=== PATIENT | female | born 1975 | race Caucasian/White ===

== ENCOUNTER 2020-08-25 13:21 | Outpatient (CLI) | payer OTHER, SELFPAY ==
--- NOTE | ~2020-08-25 | MM_ITS ---
EXAMINATION: MM screening radha BI w lisa HISTORY: Screening TECHNIQUE: Craniocaudal and mediolateral oblique 3-D tomosynthesis images were obtained and synthetic 2-D images were generated. CAD analysis was submitted and interpreted. COMPARISON: No prior mammogram is available for comparison at this institution. BREAST PARENCHYMAL COMPOSITION: Breast composed of scattered areas of fibroglandular density. FINDINGS: There is no mammographic evidence for malignancy in the right breast. There is a 1 cm mass in the lower central aspect of the left breast posteriorly containing peripheral calcification. IMPRESSION: 1. Left breast mass, lower central aspect posteriorly. 2. Additional mammographic views and possible breast ultrasound are recommended. BI-RADS Category 0: Incomplete: Needs additional imaging evaluation. Reviewed, dictated and finalized at location A. OR DATA ANALYST IMPRESSION: 1. Left breast mass, lower central aspect posteriorly. 2. Additional mammographic views and possible breast ultrasound are recommended . BI-RADS Category 0: Incomplete: Needs additional imaging evaluation.
== END 2020-08-25 13:22 | disposition home or self-care (01) ==
PROVIDERS: PCP Family Medicine; Visit Provider Nurse Practitioner Family
DX: Z12.31 Encounter for screening mammogram for malignant neoplasm of breast (principal); R92.8 Other abnormal and inconclusive findings on diagnostic imaging of breast
CPT/HCPCS: 77063; 77067

== ENCOUNTER 2020-11-07 09:07 | Emergency (ER) | payer OTHER, SELFPAY ==
[2020-11-07 09:11] VITALS: BP 119/80; PULSE 82; RESP 18; TEMP 36.3; O2SAT 98
--- NOTE | 2020-11-07 09:15 | ED.BACK ---
HPI - Back Pain/Injury General Chief Complaint: Back Pain/Injury Stated Complaint: BACK PAIN Time Seen by Provider: 11/07/20 09:16 Source: patient and RN notes reviewed History of Present Illness HPI Narrative: Patient is a 45-year-old female who presents the urgent care with complaints of acute on chronic low back pain. Patient states that she had her last flareup about 2 to 3 months ago. States that she typically uses 10 mg of Flexeril to relieve the pain however, the last 2 days the Flexeril has not been helping. Patient states that it is on her right lower back and extending to the right buttocks/hip. Patient states that she stretched really good yesterday after waking up and thinks that she made it worse . Patient denies of any known injury, fall or any strenuous activity that would have caused the flare. No other acute complaints. No acute distress noted. Patient aware of the plan of care. Some parts of this dictation were generated by voice recognition software and may contain typographical and/or grammatical inaccuracies. Related Data Home Medications Medication Instructions Recorded Confirmed albuterol sulfate 90 mcg/actuation 1 puff INHALATION Q4H PRN 08/05/20 aerosol inhaler citalopram 20 mg tablet 20 mg PO DAILY 08/05/20 clobetasol 0.05 % topical ointment 1 applic TOPICAL .twice monthly g 08/05/20 dupilumab 300 mg/2 mL subcutaneous 300 mg SUBCUT ONCE 08/05/20 syringe fluticasone 500 mcg-salmeterol 50 1 inh INHALATION Q12H 08/05/20 mcg/dose blistr powdr for inhalation lisinopril 10 1 tablet PO DAILY 08/05/20 mg-hydrochlorothiazide 12.5 mg tablet omeprazole 40 mg capsule,delayed 40 mg PO DAILY 08/05/20 release triamcinolone acetonide 0.1 % 1 applic TOPICAL DAILY 08/05/20 topical ointment Allergies Allergy/AdvReac Type Severity Reaction Status Date / Time sertraline [From Zoloft] AdvReac Intermediate Swelling Verified 08/05/20 16:11 of Throat Review of Systems Review of Systems: Narrative: CONSTITUTIONAL: Denies fever, chills, or sweats. EYES: Denies visual changes, redness, or discharge. ENT: Denies rhinorrhea, congestion, sore throat, or otalgia. CARDIOVASCULAR: Denies chest pain, palpitations, or edema. RESPIRATORY: Denies cough or dyspnea. GASTROINTESTINAL: Denies abdominal pain, nausea, vomiting, or diarrhea. GENITOURINARY: Denies dysuria or hematuria. SKIN: Denies rash or itching. MUSCULOSKELETAL: Reports of right-sided low back pain radiating to the right hip NEUROLOGIC: Denies headache, numbness, or weakness. All other systems reviewed are negative, except as documented in HPI. [facility] Past Medical History Medical History (Updated 11/07/20 @ 09:19 by DEEDEE Astorga) Anxiety Asthma Atopic dermatitis Chronic shoulder pain Cyst of left ovary (~11/2017) GERD without esophagitis Hyperlipidemia Hypertension Irritable bowel syndrome with diarrhea Non-seasonal allergic rhinitis Normal mammography (~03/24/19) Normal Pap smear (~10/14/18) Repeat pap after 10/14/21 Surgical History Surgical History (Updated 08/05/20 @ 17:36 by Gabriella Mccormick NP) History of cholecystectomy History of tonsillectomy Family History Family History (Updated 08/05/20 @ 16:08 by Adelaida Cobos [facility]) Mother Diabetes mellitus Mother Hypothyroidism Grandparent Cancer Father Heart attack Social History Social History (Updated 08/05/20 @ 16:47 by Gabriella Mccormick NP) Social History: . Two children ages 24 and 4. 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 Smoking status: Never smoker Comments At the time of my signature, I reviewed and agree with the nursing past medical, surgical, social, and family history. There is no relevant family history pertinent to the patient complaint. Exam Narrative: Exam Narrative: GENERAL: This is a well-nourished, well-developed patient, in no apparent distress. HEAD: normocephalic, atraumatic. EYES:
[2020-11-07] MEDS: predniSONE 20 MG TABLET 60 MG PO (09:20)
== END 2020-11-07 09:27 | disposition home or self-care (01) ==
PROVIDERS: Emergency Provider Nurse Practitioner Family; PCP Nurse Practitioner Family
DX: S39.012A Strain of muscle, fascia and tendon of lower back, initial encounter (principal); X58.XXXA Exposure to other specified factors, initial encounter; M54.32 Sciatica, left side; J45.909 Unspecified asthma, uncomplicated; K21.9 Gastro-esophageal reflux disease without esophagitis; E78.5 Hyperlipidemia, unspecified; I10 Essential (primary) hypertension; F41.9 Anxiety disorder, unspecified
CPT/HCPCS: 99213; G0463; J7512

== ENCOUNTER 2021-09-09 07:18 | Outpatient (CLI) | payer OTHER, SELFPAY ==
--- NOTE | ~2021-09-09 | US_ITS ---
EXAMINATION: US abdomen limited EXAM DATE: 09/09/2021 08:12 INDICATION: R74.8 - Abnormal levels of other serum enzymes. TECHNIQUE: Multiple grayscale and Doppler images of the abdomen right upper quadrant were obtained (b y a technologist who performed the scan) and subsequently reviewed. There is no prior study for collin michael. FINDINGS: The pancreatic head and body are normal in appearance. The pancreatic tail is not visualized. There is hepatic steatosis. There is focal nonspecific region of decreased echogenicity within this which is round, probably a small mass such as hemangioma or adenoma, but ultrasound is nonspecific There a re no focal liver lesions identified. There is no evidence of intrahepatic biliary duct dilation. Portal venous flow was seen in the hepatopedal, normal direction and has normal Doppler waveform. No right-sided hydronephrosis. Common bile duct measures 3 mm, which is normal. The gallbladder fossa is unremarkable. IMPRESSION: Nonspecific left liver lobe 9 mm mass, most likely benign. MRI abdomen without and with c ontrast would add most specificity. Reviewed, dictated and finalized at location D. RATORY ANALYST IMPRESSION: Nonspecific left liver lobe 9 mm mass, most likely benign. MRI abdo men without and with contrast would add most specificity.
== END 2021-09-09 07:19 | disposition home or self-care (01) ==
LOC: ANHIMG 07:21
PROVIDERS: PCP Nurse Practitioner Family; Visit Provider Nurse Practitioner Family
DX: R74.8 Abnormal levels of other serum enzymes (principal)
CPT/HCPCS: 76705

== ENCOUNTER 2021-09-09 11:06 | Outpatient (CLI) | payer OTHER, SELFPAY ==
[2021-09-09 11:52] LABS: Prothrombin Time 12.7 Seconds (11.1-14.7)
[2021-09-11 15:03] LABS: GGT 52 U/L (3-55)
[2021-09-13 11:55] LABS: Ceruloplasmin 29 mg/dL (18-53)
[2021-09-13 12:59] LABS: Mitochondrial (M2) Ab (IgG) <=20.0 U (<=20.0)
[2021-09-14 05:39] LABS: Anti Nuclear Antibody Pattern Nuclear, Speckled; Anti Nuclear Antibody Titer 1:40 (Negative)
[2021-09-14 16:33] LABS: Alpha Fetoprotein Tumor Marker 2.6 ng/mL (<6.1)
[2021-09-15 15:42] LABS: ALT 94 U/L (6-29); Alpha-2-Macroglobulin 166 mg/dL (106-279); Apolipoprotein A1 150 mg/dL (101-198); Fibrosis Stage F0; GGT 49 U/L (3-55); Haptoglobin 177 mg/dL (43-212); Necroinflammat Act Grade A1-A2; Total Bilirubin 0.4 mg/dL (0.2-1.2)
== END 2021-09-09 11:07 | disposition home or self-care (01) ==
PROVIDERS: PCP Nurse Practitioner Family; Visit Provider Nurse Practitioner Family
DX: R74.8 Abnormal levels of other serum enzymes (principal)
CPT/HCPCS: 36415; 81596; 82104; 82105; 82390; 82728; 82977; 83520; 85610; 86038; 86039

== ENCOUNTER 2021-09-18 08:02 | Outpatient (CLI) | payer OTHER, SELFPAY ==
--- NOTE | ~2021-09-18 | MR_ITS ---
EXAMINATION: MR abdomen wo/w con DATE: 09/18/2021 10:06 INDICATION: Abnormal level of other serum enzymes. Liver lesion on prior ultrasound. TECHNIQUE: Magnetic resonance imaging (MRI) of the abdomen was performed without and with 20 mL Multi verena intravenous contrast. Sequences included coronal T2-weighted SS-FSE, coronal and axial FS 2D-F IESTA, axial STIR FSE, axial T2-weighted SS-FSE, axial T2-weighted FS SS-FSE, axial diffusion-weighte d SE, axial dual-echo T1-weighted FSPGR, and axial and coronal T1-weighted LAVA. Postcontrast axial T 1-weighted LAVA images were obtained in a time course. Postcontrast coronal T1-weighted LAVA images w ere obtained. COMPARISON: Ultrasound dated 09/09/2021 FINDINGS: Heart size is normal. No pericardial or pleural effusion. Gallbladder is not visualized consistent wi th history of prior cholecystectomy. Spleen, pancreas, bilateral adrenal glands and kidneys are ammy l. Visualized portions of the bowels including the appendix are normal. No pathologically enlarged ab dominal lymphadenopathy. Mild lower lumbar spondylosis. Diffuse hepatic steatosis with signal dropout on opposed phase images. There is an approximately 8 mm subcapsular nodule at the anterior aspect of segment 8 of the liver corresponding to the hypoechoic lesion seen on prior ultrasound. The lesion is isointense to the surrounding hepatic parenchyma on th e in phase images but hyperintense on the opposed phase images with lesser degree of signal loss. The lesion is hyperintense the surrounding hepatic parenchyma on both the pre and postcontrast images, u nclear if and to what degrees there is any enhancement above baseline signal given the small size of the lesion and some differences in positioning due to phase of respiration. IMPRESSION: 1. Diffuse hepatic steatosis with 8 mm subcapsular nodule in segment 8 of the liver, assessment of wh ich is limited by the small size of the lesion. Both the MRI and ultrasound findings would be consist ent with focal fatty sparing which would be favored. Differential would include focal nodular hyperpl audra or less likely hepatic adenoma, hemangioma or malignancy which would be least likely in the abse nce of cirrhosis or other chronic liver disease or known primary malignancy. Consider one-year follow -up pre and postcontrast MRI. Reviewed, dictated and finalized at location A. IMPRESSION: 1. Diffuse hepatic steatosis with 8 mm subcapsular nodule in segment 8 of the l iver, assessment of which is limited by the small size of the lesion. Both the MRI and ultrasound findings would be consistent with focal fatty sparing which would be favored. Differential would include focal nodular hyperplasia or less likely hepatic adenoma, hemangioma or malignancy which would be least likely in the absence of cirrhosis or other chronic liver disease or known primary malig lorraine. Consider one-year follow-up pre and postcontrast MRI.
== END 2021-09-18 08:03 | disposition home or self-care (01) ==
LOC: ANHIMG 08:09
PROVIDERS: PCP Nurse Practitioner Family; Visit Provider Nurse Practitioner Family
DX: R74.8 Abnormal levels of other serum enzymes (principal); R16.0 Hepatomegaly, not elsewhere classified; K76.0 Fatty (change of) liver, not elsewhere classified; K76.9 Liver disease, unspecified
CPT/HCPCS: 74183; A9577

== ENCOUNTER 2021-11-18 11:29 | Outpatient (CLI) | payer OTHER, SELFPAY ==
[2021-11-18 12:45] LABS: Immunoglobulin G 1514 mg/dL (700-1600)
[2021-11-23 12:45] LABS: Actin Antibody (IgG) <20 U (<20); LKM 1 Antibody <=20.0 U (<=20.0)
[2021-11-23 21:42] LABS: Alpha Fetoprotein Tumor Marker 1.4 ng/mL (<6.1)
== END 2021-11-18 11:30 | disposition home or self-care (01) ==
LOC: ANHLAB 11:30
PROVIDERS: PCP Nurse Practitioner Family; Visit Provider Nurse Practitioner Family
DX: R74.8 Abnormal levels of other serum enzymes (principal)
CPT/HCPCS: 36415; 82105; 82784; 83516; 86376